=== PATIENT | female | born 1975 | race American Indian/Alaskan Native ===

== ENCOUNTER 2020-07-15 03:32 | Emergency (ER) | payer SELFPAY ==
--- NOTE | 2020-07-15 07:47 | Emergency Department Report ---
ED Extremity Problem HPI - General Chief complaint: Headache Stated complaint: HEADACHE/FOOT PAIN Time Seen by Provider: 07/15/20 05:10 Source: patient Mode of arrival: Stretcher Limitations: No Limitations - History of Present Illness Initial comments: 44-year-old female who is currently homeless presents to the ER today with complaints of bilateral foot swelling and mild pain. She states that is the plantar aspect of the right foot, and the dorsal aspect of the left foot. Patient states that she has not injured her feet. She does admit to doing lots of walking. She denies any associated calf pain or swelling. She denies any chest pain or shortness of breath. She denies any skin discoloration. She denies any other symptoms at this time. MD Complaint: other -: hour(s) (Cold feet swelling and pain 2 hours prior to arrival) - Related Data Previous Rx's Medication Instructions Recorded Last Taken Type Ibuprofen [Motrin] 800 mg PO Q8HR PRN #30 tablet 07/15/20 Unknown Rx Allergies Allergy/AdvReac Type Severity Reaction Status Date / Time No Known Allergies Allergy Unverified 07/15/20 04:52 ED Review of Systems ROS: Stated complaint: HEADACHE/FOOT PAIN Other details as noted in HPI Comment: All other systems reviewed and negative Eyes: denies: eye pain, eye discharge, vision change ENT: denies: ear pain, throat pain Respiratory: denies: cough, shortness of breath, wheezing Cardiovascular: denies: chest pain, palpitations Endocrine: no symptoms reported Gastrointestinal: denies: abdominal pain, nausea, diarrhea Musculoskeletal: joint swelling, arthralgia Skin: denies: change in color Neurological: denies: headache, weakness, paresthesias Psychiatric: denies: anxiety, depression Hematological/Lymphatic: denies: easy bleeding, easy bruising ED Past Medical Hx - Past Medical History Previous Medical History?: No - Surgical History Past Surgical History?: No - Social History Smoking Status: Current Every Day Smoker Substance Use Type: Marijuana - Medications Home Medications: Home Medications Medication Instructions Recorded Confirmed Last Taken Type Ibuprofen [Motrin] 800 mg PO Q8HR PRN #30 tablet 07/15/20 Unknown Rx ED Physical Exam - General Limitations: No Limitations General appearance: alert, in no apparent distress - Head Head exam: Present: atraumatic, normocephalic, normal inspection - Eye Eye exam: Present: normal appearance, PERRL, EOMI Pupils: Present: normal accommodation - ENT ENT exam: Present: normal exam, mucous membranes moist - Cardiovascular Cardiovascular Exam: Present: regular rate, normal rhythm, normal heart sounds - Extremities Exam Extremities exam: Present: normal inspection, full ROM, normal capillary refill, other (Patient has no tenderness to palpation to the dorsal or plantar aspect of both feet. No apparent swelling noted.). Absent: joint swelling, calf tenderness - Neurological Exam Neurological exam: Present: alert, oriented X3, CN II-XII intact, normal gait - Psychiatric Psychiatric exam: Present: normal affect, normal mood - Skin Skin exam: Present: intact ED Course Vital Signs 07/15/20 07/15/20 04:22 07:58 Temperature 98.5 F 98.3 F Pulse Rate 100 H 95 H Respiratory 18 16 Rate Blood Pressure 131/67 Blood Pressure 141/78 [Left] O2 Sat by Pulse 99 95 Oximetry ED Medical Decision Making - Medical Decision Making 44-year-old female who is currently homeless presents to the ER today with complaints of bilateral foot swelling and mild pain. She states that is the plantar aspect of the right foot, and the dorsal aspect of the left foot. Patient states that she has not injured her feet. She does admit to doing lots of walking. She denies any associated calf pain or swelling. She denies any chest pain or shortness of breath. She denies any skin discoloration. She denies any other symptoms at this time. Patient well-appearing, she is not toxic, she does not appear to be in any acute distress. She does not appear to be significantly dehydrated. Her physical exam does not suggest compartment syndrome, DVT, acute arterial occlusion, cellulitis, CHF or any other emergent conditions at this time. Her repeat vs stable. She will be given a prescription for Motrin for pain. Recommend that she rest and elevate her leg as often as she can. She will be given referral to local primary care doctor. Patient was stable at time of discharge. Critical care attestation.: If time is entered above; I have spent that time in minutes in the direct care of this critically ill patient, excluding procedure time. ED Disposition Clinical Impression: Bilateral foot pain Disposition: DC-01 TO HOME OR SELFCARE Is pt being admited?: No Does the pt Need Aspirin: No Condition: Stable Instructions: Foot Pain Additional Instructions: Take the Motrin as prescribed. I encouraged that you drink lots of water. You need to rest your feet as often as you can. Follow-up with the primary care doctor listed on your discharge instructions below. Return to the ER if your symptoms changes or worsens in any way. Prescriptions: Ibuprofen [Motrin] 800 mg PO Q8HR PRN #30 tablet PRN Reason: Pain Referrals: PRIMARY CARE, [Primary Care Provider] - 3-5 Days Time of Disposition: 07:45
[2020-07-15 07:59] VITALS: BP 141/78
== END 2020-07-15 07:59 | disposition home or self-care (01) ==
LOC: ED 03:32
DX: M25.571 Pain in right ankle and joints of right foot (principal); M25.572 Pain in left ankle and joints of left foot; F17.200 Nicotine dependence, unspecified, uncomplicated; F12.90 Cannabis use, unspecified, uncomplicated; Z79.899 Other long term (current) drug therapy
CPT/HCPCS: 99283

== ENCOUNTER 2021-12-23 03:44 | Emergency (ER) | payer SELFPAY ==
[2021-12-23 03:54] VITALS: BP 98/53
== END 2021-12-23 07:32 | disposition left against medical advice (07) ==
LOC: ED 03:44
DX: R10.9 Unspecified abdominal pain (principal); R11.2 Nausea with vomiting, unspecified; Z53.21 Procedure and treatment not carried out due to patient leaving prior to being seen by health care provider